=== PATIENT | female | born 2000 | race Caucasian/White ===

== ENCOUNTER 2022-04-05 08:12 | Inpatient (IN) ==
[2022-04-05] MEDS ORDERED: Promethazine INJ(RESTRICTED) 25 MG/ML 1 ml VIAL IV PRN (08:45)
[2022-04-05] MEDS ORDERED: Lactated Ringers 1000 ml BAG 1,000 ML IV ONE (08:45)
[2022-04-05] MEDS ORDERED: Buffered Lidocaine 1% SYRIN 1 ml INTRADERM ONE (08:45)
[2022-04-05] MEDS ORDERED: Nalbuphine 10 MG/ML 1 ML VIAL IV PRN (08:45)
[2022-04-05] MEDS ORDERED: Dinoprostone 10 MG VAG.SUPP VAGINAL ONE (08:49)
[2022-04-05] MEDS ORDERED: Lactated Ringers 1000 ml BAG 1,000 ML IV SCH (09:00)
[2022-04-05 09:35] LABS: Urine Benzodiazepine Screen None Detected (None Detect); Urine Cannabinoids Screen None Detected (None Detect); Urine Opiates Screen None Detected (None Detect)
[2022-04-05] MEDS ORDERED: Nalbuphine 10 MG/ML 1 ML VIAL IM PRN (22:39)
[2022-04-05] MEDS ORDERED: Morphine 10 MG/ML VIAL (1 ml) IM ONE (22:39)
[2022-04-05] MEDS ORDERED: Promethazine INJ(RESTRICTED) 25 MG/ML 1 ml VIAL IM ONE (22:48)
[2022-04-06] MEDS ORDERED: Oxytocin in LR 20,000 MILLI.UNIT/1,000 ML BAG IV SCH (09:15)
[2022-04-06] MEDS ORDERED: Oxytocin in LR 20,000 MILLI.UNIT/1,000 ML BAG IV ONE (09:17)
[2022-04-06 10:10] LABS: ABS Eosinophils 0.1 10^3/ul (0-0.6); ABS Lymphocytes 1.3 10^3/ul (1.0-4.8); ABS Monocytes 0.5 10^3/ul (0-0.8); ABS Neutrophils 8.9 10^3/ul (1.5-7.7); Eosinophil % 1.3 %; Hematocrit 34 % (35-47); Hemoglobin 11.8 g/dL (12.0-16.0); Lymphocyte % 11.6 %; Mean Corpuscular HGB Conc 35 g/dL (31-36); Mean Corpuscular Hemoglobin 33 pg (27-31); Mean Corpuscular Volume 96 fL (80-97); Mean Platelet Volume 7.6 fL (7.4-10.4); Platelet Count 265 10^3/uL (150-450); Red Blood Count 3.55 10^6 /uL (3.70-4.87); Red Cell Distribution Width 14 % (10-15); White Blood Count 10.8 10^3/uL (3.5-10.8)
[2022-04-06] MEDS ORDERED: OBEPIDURAL (200 ML) 200 ML EPIDURAL ONE (14:59)
[2022-04-06] MEDS ORDERED: Lidocaine/Epinephrin 1.5%/200 5 ML AMP INJ ONE (15:02)
[2022-04-06] MEDS ORDERED: Sodium Citrate/Citric Acid LIQ 15 ML UDC PO PRN (16:02)
[2022-04-06] MEDS ORDERED: Phenylephrine 40 mcg/mL 10mL (400mcg) SYRINGE IV PUSH PRN ×2 (16:02)
[2022-04-06] MEDS: Lactated Ringers 1000 ml BAG 1,000 ML IV ONE (16:17)
[2022-04-06] MEDS ORDERED: OBEPIDURAL (200 ML) 200 ML EPIDURAL SCH (17:00)
[2022-04-06] MEDS ORDERED: Lactated Ringers 1000 ml BAG 1,000 ML IV SCH (17:00)
[2022-04-06 20:00] LABS: Urine Appearance Clear; Urine Bilirubin Negative (Negative); Urine Blood 2+ (Negative); Urine Color Straw; Urine Glucose Negative (Negative); Urine Ketones Negative (Negative); Urine Nitrite Negative (Negative); Urine Protein Negative (Negative); Urine Specific Gravity 1.003 (1.002-1.030); Urine Urobilinogen Negative (Negative)
[2022-04-06 20:09] LABS: Urine Bacteria Absent (Absent); Urine Red Blood Cell Trace(0-2/hpf) (Absent); Urine White Blood Cell 1+(6-10/hpf) (Absent)
[2022-04-07] MEDS ORDERED: Bupivacaine 0.25% SDV PF 10 ML VIAL INJ ONE (07:19)
[2022-04-07] MEDS ORDERED: Glycerin ADULT 2.4 gm SUPP PR PRN (10:24)
[2022-04-07] MEDS ORDERED: Witch Hazel PAD JAR TOPICAL PRN (10:24)
[2022-04-07] MEDS ORDERED: Oxytocin in LR 20,000 MILLI.UNIT/1,000 ML BAG IV SCH (10:30)
[2022-04-07] MEDS ORDERED: Lactated Ringers 1000 ml BAG 1,000 ML IV SCH (11:00)
[2022-04-07] MEDS: Dibucaine 1% OINT 28.35 GM TUBE PR PRN (12:27)
[2022-04-07] MEDS ORDERED: Phenylephrine 40 mcg/mL 10mL (400mcg) SYRINGE ONE (14:44)
[2022-04-07] MEDS: Lactated Ringers 1000 ml BAG 1,000 ML IV ONE (18:28)
[2022-04-08 07:13] LABS: ABS Eosinophils 0.2 10^3/ul (0-0.6); ABS Lymphocytes 1.9 10^3/ul (1.0-4.8); ABS Monocytes 0.9 10^3/ul (0-0.8); ABS Neutrophils 8.1 10^3/ul (1.5-7.7); Eosinophil % 1.9 %; Hematocrit 27 % (35-47); Lymphocyte % 17.4 %; Mean Corpuscular HGB Conc 33 g/dL (31-36); Mean Corpuscular Hemoglobin 32 pg (27-31); Mean Corpuscular Volume 96 fL (80-97); Mean Platelet Volume 7.5 fL (7.4-10.4); Platelet Count 229 10^3/uL (150-450); Red Blood Count 2.81 10^6 /uL (3.70-4.87); Red Cell Distribution Width 14 % (10-15); White Blood Count 11.2 10^3/uL (3.5-10.8)
[2022-04-08] MEDS: Dibucaine 1% OINT 28.35 GM TUBE PR PRN (15:56)
[2022-04-09 08:30] VITALS: BP 102/70
[2022-04-09] MEDS ORDERED: Measles, Mumps,Rubella VACC 0.5 ML/VIAL SUBCUT ONE (09:00)
== END 2022-04-09 13:50 | disposition home or self-care (01) | DRG 560 ==
LOC: MCHOBOUT 08:12 → MCHOB 10:00
PROVIDERS: ADMIT Midwife; ATTEND Midwife

== ENCOUNTER 2023-12-15 10:00 | Inpatient (IN) ==
[2023-12-15] MEDS ORDERED: Lidocaine 1% VIAL 10 MG/ML 30 ML VIAL INJ PRN (11:01)
[2023-12-15] MEDS: Buffered Lidocaine 1% SYRIN 1 ml INTRADERM ONE (11:43)
[2023-12-15] MEDS: Lactated Ringers 1000 ml BAG 1,000 ML IV ONE (11:45)
[2023-12-15] MEDS: Oxytocin in LR 20,000 MILLI.UNIT/1,000 ML BAG IV SCH (11:55)
[2023-12-15 12:10] LABS: ABS Eosinophils 0.1 10^3/uL (0.0-0.5); ABS Lymphocytes 1.6 10^3/uL (1.0-4.8); ABS Monocytes 0.9 10^3/uL (0.0-0.9); ABS Neutrophils 7.7 10^3/uL (1.5-7.6); ABS Nucleated RBC 0.01 10^3/ul; Eosinophil % 0.9 %; Hemoglobin 12.2 g/dL (11.5-14.3); Lymphocyte % 15.8 %; Mean Corpuscular Hemoglobin 31.5 pg (27-33); Mean Corpuscular Volume 92.6 fL (80-97); Mean Platelet Volume 7.2 fL (7.5-11.2); Nucleated Red Blood Cells % 0.1 %/100WBC (0.0-0.8); Platelet Count 288 10^3/uL (150-450); Red Blood Count 3.88 10^6/uL (3.63-4.92); Red Cell Distribution Width 16.2 % (12-17); White Blood Count 10.3 10^3/uL (3.8-11.8)
[2023-12-15 17:29] LABS: Urine Benzodiazepine Screen None Detected (None Detect); Urine Cannabinoids Screen None Detected (None Detect); Urine Opiates Screen None Detected (None Detect)
[2023-12-15] MEDS: Lactated Ringers 1000 ml BAG 1,000 ML IV SCH (19:00)
[2023-12-15] MEDS ORDERED: fentaNYL 100 mcg/2 ml 50 MCG/ML VIAL ONE (20:28)
[2023-12-15] MEDS: OBEPIDURAL (200 ML) 200 ML EPIDURAL ONE (20:59)
[2023-12-15] MEDS: Lidocaine 1.5% EPI 1:200,000 30 ML SDV ONE (21:09)
[2023-12-15] MEDS ORDERED: Sodium Citrate/Citric Acid LIQ 15 ML UDC PO PRN (21:20)
[2023-12-15] MEDS ORDERED: Phenylephrine 40 mcg/mL 10mL (400mcg) SYRINGE IV PUSH PRN ×2 (21:20)
[2023-12-15 22:18] LABS: Urine Appearance Clear; Urine Bilirubin Negative (Negative); Urine Blood Negative (Negative); Urine Color Colorless; Urine Glucose Negative (Negative); Urine Ketones Negative (Negative); Urine Nitrite Negative (Negative); Urine Protein Negative (Negative); Urine Specific Gravity 1.003 (1.002-1.030); Urine Urobilinogen Negative (Negative)
[2023-12-16] MEDS ORDERED: Bupivacaine 0.25% SDV PF 10 ML VIAL INJ ONE (01:59)
[2023-12-16] MEDS ORDERED: Lidocaine 2% PF 5 ML VIAL ONE (01:59)
[2023-12-16] MEDS ORDERED: Glycerin ADULT 2.4 gm SUPP PR PRN (03:35)
[2023-12-16] MEDS: Witch Hazel PAD JAR TOPICAL PRN (04:06)
[2023-12-16] MEDS: Dibucaine 1% OINT 28.35 GM TUBE PR PRN (04:06)
[2023-12-16] MEDS: Oxytocin in LR 20,000 MILLI.UNIT/1,000 ML BAG IV SCH (14:04)
[2023-12-16] MEDS: Lactated Ringers 1000 ml BAG 1,000 ML IV ONE (14:12)
[2023-12-16] MEDS: OBEPIDURAL (200 ML) 200 ML EPIDURAL SCH (14:13)
[2023-12-16] MEDS: Lactated Ringers 1000 ml BAG 1,000 ML IV SCH (14:13)
[2023-12-17 07:25] LABS: ABS Eosinophils 0.2 10^3/uL (0.0-0.5); ABS Lymphocytes 1.8 10^3/uL (1.0-4.8); ABS Monocytes 0.6 10^3/uL (0.0-0.9); ABS Neutrophils 5.4 10^3/uL (1.5-7.6); ABS Nucleated RBC 0.01 10^3/ul; Hematocrit 31.4 % (35-45); Hemoglobin 10.7 g/dL (11.5-14.3); Mean Corpuscular Hemoglobin 31.8 pg (27-33); Mean Corpuscular Hgb Conc 34.2 g/dL (31-36); Mean Corpuscular Volume 93.2 fL (80-97); Nucleated Red Blood Cells % 0.1 %/100WBC (0.0-0.8); Platelet Count 203 10^3/uL (150-450); Red Blood Count 3.37 10^6/uL (3.63-4.92); Red Cell Distribution Width 16.5 % (12-17)
[2023-12-17 09:21] VITALS: BP 104/66
[2023-12-17 14:02] LABS: Varicella IgG Antibody Index 1.1; Varicella-Zoster IgG Antibody Positive
== END 2023-12-17 12:32 | disposition home or self-care (01) | DRG 560 ==
LOC: MCHOBOUT 10:00 → MCHOB 10:59